=== PATIENT | male | born 1940 | race Caucasian/White ===

== ENCOUNTER 2020-08-08 09:46 | Outpatient (RCR) | payer MEDICARE ==
[~2020-08-08] VITALS: Ht 177.8 cm; Wt 90.9 kg
[2020-08-08] MEDS ORDERED: ROPI2TAB6 PO (13:08)
[2020-08-08] MEDS ORDERED: FINA5TAB6 PO (13:08)
[2020-08-08] MEDS ORDERED: ATOR40TA70 PO (13:08)
[2020-08-08] MEDS ORDERED: LISI2.5T PO (13:08)
[2020-08-08] MEDS ORDERED: LEVO100T7 PO (13:08)
[2020-08-08] MEDS ORDERED: MEMA5TAB43 PO (13:08)
[2020-08-08] MEDS ORDERED: CARV12.53 PO (13:08)
[2020-08-08] MEDS ORDERED: RIVA20TA PO (13:08)
[2020-08-08] MEDS ORDERED: BUME2TAB7 PO (13:08)
== END 2020-08-08 15:17 | disposition home or self-care (01) ==
LOC: EDBD 09:46 → PREOP 09:46
PROVIDERS: ATTEND Urology
DX: Z01.818 Encounter for other preprocedural examination (principal)

== ENCOUNTER → 2020-08-11 | Outpatient (CLI) | payer MEDICARE ==
[~2020-08-11] MED LIST: ATOR40TA70 PO; BUME2TAB7 PO; CARV12.53 PO; FINA5TAB PO; FINA5TAB6 PO; LEVO100T7 PO; LISI2.5T PO; MEMA5TAB43 PO; RIVA20TA PO; ROPI2TAB6 PO; TMSL.4C PO
== END ==
LOC: LAB FS 11:08
PROVIDERS: ATTEND Urology
DX: Z01.812 Encounter for preprocedural laboratory examination (principal); N40.0 Benign prostatic hyperplasia without lower urinary tract symptoms; Z20.828 Contact with and (suspected) exposure to other viral communicable diseases
CPT/HCPCS: 87635

== ENCOUNTER 2020-08-13 06:08 | Inpatient (IN) | payer MEDICARE ==
[~2020-08-13] VITALS: Ht 177 cm; Wt 90.0 kg
[~2020-08-13 06:08] MED LIST changes: -FINA5TAB PO; -TMSL.4C PO
[2020-08-13 06:15] VITALS: BP 149/90
[2020-08-13 06:45] VITALS: BP 149/90
[2020-08-13] MEDS ORDERED: cefTRIAXone FOR IV USE 1,000 MG in WATER (STERILE) FOR INJECTION 10 ML IV ONE (06:45)
[2020-08-13] MEDS ORDERED: fentaNYL INJECTION 100 MCG/2 ML AMP ONE (06:45)
[2020-08-13] MEDS ORDERED: ROCURONIUM 10 MG/ML 5 ML SYRINGE IV ONE (06:49)
[2020-08-13] MEDS ORDERED: LIDOCAINE PF 2% 5 ML (XYLOCAINE) VIAL ONE (06:49)
[2020-08-13] MEDS ORDERED: proPOfol 200 MG/20 ML (DIPRIVAN) VIAL IV ONE (06:49)
[2020-08-13] MEDS ORDERED: SEVOFLURANE (ULTANE) 15 ML INHAL SOLN ONE (06:49)
[2020-08-13] MEDS ORDERED: GLYCOPYRROLATE 0.2 MG/ML (ROBINUL) 2 ML VIAL ONE (06:50)
[2020-08-13] MEDS ORDERED: ONDANSETRON 4 MG/2 ML (SDV) Z0FRAN ONE (06:50)
[2020-08-13] MEDS ORDERED: NEOSTIGMINE 3 MG/3 ML VIAL ONE (06:50)
[2020-08-13] MEDS ORDERED: LACTATED RINGERS 1,000 ML IV PRN (06:52)
--- NOTE | 2020-08-13 07:02 | Progress Note-Pre Operative ---
Pre-Operative Progress Note H&P Reviewed The H&P was reviewed, patient examined and no changes noted. Date Seen by Provider: Aug 13, 2020 Time Seen by Provider: 07:01 Date H&P Reviewed: Aug 13, 2020 Time H&P Reviewed: 07:01 Pre-Operative Diagnosis: BPH WITH URINE RETENTION SERGIO CHRISTINA MD Aug 13, 2020 07:02
[2020-08-13] MEDS ORDERED: GENTAMICIN 40 MG/ML 2 ML INJ SDV ONE (07:08)
[2020-08-13 07:11] LABS: BASOPHILS % (AUTO) 0 % (0-10); EOSINOPHILS # (AUTO) 0.3 10^3/uL (0.0-0.3); EOSINOPHILS % (AUTO) 4 % (0-10); HEMATOCRIT 39 % (40-54); HEMOGLOBIN 13.3 g/dL (13.3-17.7); LYMPHOCYTES # (AUTO) 1.2 10^3/uL (1.0-4.0); LYMPHOCYTES % (AUTO) 17 % (12-44); MEAN CORPUSCULAR HEMOGLOBIN 33 pg (25-34); MEAN CORPUSCULAR HGB CONC 35 g/dL (32-36); MEAN CORPUSCULAR VOLUME 94 fL (80-99); MEAN PLATELET VOLUME 9.7 fL (9.0-12.2); MONOCYTES # (AUTO) 0.8 10^3/uL (0.0-1.0); MONOCYTES % (AUTO) 12 % (0-12); NEUTROPHILS # (AUTO) 4.5 10^3/uL (1.8-7.8); NEUTROPHILS % (AUTO) 66 % (42-75); PLATELET COUNT 285 10^3/uL (130-400); WHITE BLOOD COUNT 6.9 10^3/uL (4.3-11.0)
--- NOTE | 2020-08-13 07:11 | Progress Note-Post Operative ---
Post-Operative Progess Note Surgeon (s)/Repair Service Clerk (s) Surgeon Procedure & Operative Findings Date of Procedure SERGIO CHRISTINA MD Aug 13, 2020 07:11
[2020-08-13] MEDS ORDERED: CATHETER FLUSH 10 ML SYR IV PRN (07:15)
[2020-08-13 07:21] LABS: CHLORIDE 104 MMOL/L (98-107); POTASSIUM 3.6 MMOL/L (3.6-5.0); SODIUM 139 MMOL/L (135-145)
[2020-08-13 07:23] LABS: GLUCOSE 97 MG/DL (70-105)
[2020-08-13 07:24] LABS: CARBON DIOXIDE 24 MMOL/L (21-32)
[2020-08-13 07:27] LABS: CREATININE SERUM 0.99 MG/DL (0.60-1.30); GFR ESTIMATED > 60
[2020-08-13 07:28] LABS: BUN/CREATININE RATIO 29
--- NOTE | 2020-08-13 07:31 | Progress Note - Urology ---
Progress Note-Urology Progress Notes/Assess & Plan Progress/Assessment & Plan PATIENT AND EX VERY POOR HISTORIANS. NOT SURE IF HE STOPPED XARELTO YESTER OR TUESDAY TOLD. DID NOT SEE DR RIVERS (CASH CHECKER) FOR CLEARANCE. PLAN CANCEL SURGERY AND PATIENT TO SEE CASH CHECKER OWN OR ONE OF OURS FOR CARDIAC TESTING AND CLEARANCE FOR SURGERY. TOV AND REINSERT BHARDWAJ IF RETENTION. ALL FULLY EXPLAINED TO THEM REPEATEDLY IN PRESENCE OF ANESTHESIA Final Diagnosis BPH WITH RETENTION SERGIO CHRISTINA MD Aug 13, 2020 07:31
--- NOTE | 2020-08-13 07:39 | Discharge Inst-Urology ---
Discharge Inst-Urology Reconcile Patient Problems Problems Reviewed?: Yes Final Diagnosis BPH WITH RETENTION Patient Instructions/Follow Up Plan/Assessment/Instructions DC Shafer, patient to go to ED if unable to void, to reinsert Shafer Patient to take BOTH FLOMAX (TAMSULOCIN) 0.4 MG TWICE A DAY AND PROSCAR (FINASTERIDE) 5 MG ONCE A DAY Resume Xarelto Patient to contact his aluminum molding machine operator for cardiac testing and clearance for surgery, if unable to do, patient is to contact my office to arrange that with one of our local cardiologists. Once all done, patient is to contact our office to reschedule surgery If questions or concerns contact your physician Or seek help at emergency department. BRYON STRESS ALL ABOVE WITH PATIENT AND EX THANKS SERGIO CHRISTINA MD Aug 13, 2020 07:39
[2020-08-13] MEDS ORDERED: TMSL.4C PO (07:43)
[2020-08-13] MEDS ORDERED: FINA5TAB PO (07:43)
--- NOTE | 2020-08-13 09:31 | NUR ---
0605- PATIENT ARRIVED TO UNIT WITH HIS EX WHO IS NOW HIS NEIGHBOR. 0615- PT WE RE INSTRUCTED TO DRESS IN THE GOWN AND WE WILL GET STARTED 0630- PT'S VITALS WERE COLLECTED AND PT WAS QUESTIONED ABOUT HIS CURRENT MEDICATIONS AND STATED HE IS UNKNOWN ABOUT WHAT MEDICATIONS HE TAKES AND WHEN HE TOOK THEM BUT STATED HE TOOK NO MEDICATIONS TODAY. THE FEMALE IN THE ROOM WHO IS HIS EX GOES ON TO SAY THAT HE DOESN'T HAVE ANY HEART MEDICATIONS. THE TWO WERE CONTRADICTING THEM SELF THROUGH OUT THE CONVERSATION. 0630- DEYANIRA BECERRA WAS IN THE ROOM WELL AND DIDN'T FEEL THE PATIENT WAS ABLE TO PROPERLY MANAGE HIS CURRENT MEDICAL SITUATION AND AND SINCE HE WAS UNSURE OF THE MEDICATIONS OR WEATHER OR NOT HE HAD A CABBAGE THEN THIS WAS UNSAFE. 07- DR CHRISTINA CAME IN THE ROOM ALOT WITH OTHER ANESTHESIA STAFF AND DECIDED THAT THIS PROCEDURE WAS TO RISKY TO TAKE WITH NO CARDIAC MICHEAL AND WITH OUT THE KNOWLEDGE OF WHAT CURRENT MEDICATIONS THE PATIENT TAKES. AT THIS TIME THE SURGERY WAS CANCELED 0720- IT THIS TIME I WAS ABLE TPO REMOVE THE IV AND GIVE DISCHARGE INSTRUCTIONS. THE PT REFUSED TO HAVE HIS CATHETER REMOVED AND DR APPROVED FOR IT TO STAY IN PLACE FOR ONE WEEK BEFORE FOLLOWING UP. PT W2AS STRESSED THE IMPORTANCE OF SEEING HIS CARDIAC DR KAHLIL. PT VOICED HE UNDERSTOOD. 0740- PT WAS ASSISTED OUT TO HIS CAR WITH CATHETER STILL IN PLACE AND NEW RX IN HAND TO TAKE TO THE PHARMACY.
== END 2020-08-13 07:45 | disposition home or self-care (01) | DRG 726 ==
LOC: EDBD → UNDOADMIN 06:08 → 4TH 06:08
PROVIDERS: ADMIT Urology; ATTEND Urology
DX: N40.1 Benign prostatic hyperplasia with lower urinary tract symptoms (principal); R33.9 Retention of urine, unspecified; Z20.828 Contact with and (suspected) exposure to other viral communicable diseases; Z53.8 Procedure and treatment not carried out for other reasons; Z79.02 Long term (current) use of antithrombotics/antiplatelets
CPT/HCPCS: 36415; 80048; 85025; 87081

== ENCOUNTER 2020-11-18 05:59 | Outpatient (RCR) | payer MEDICARE ==
[~2020-11-18] VITALS: Ht 177 cm; Wt 90.0 kg
[~2020-11-18 05:59] MED LIST changes: +FINA5TAB PO; +TMSL.4C PO
== END 2020-11-18 15:01 | disposition home or self-care (01) ==
LOC: PREOP 05:59
PROVIDERS: ATTEND Urology
DX: Z01.818 Encounter for other preprocedural examination (principal)

== ENCOUNTER 2020-11-25 09:00 | Inpatient (IN) | payer MEDICARE ==
[~2020-11-25] VITALS: Ht 177 cm; Wt 90.0 kg
[2020-12-23] VITALS (30 sets, daily range): BP systolic 90–164; BP diastolic 41–103
[2020-12-23] MEDS ORDERED: cefTRIAXone FOR IV USE 1,000 MG in WATER (STERILE) FOR INJECTION 10 ML IV ONE (06:15)
[2020-12-23] MEDS ORDERED: NS IV 500 ML 500 ML IV SCH (06:15)
[2020-12-23] MEDS ORDERED: fentaNYL INJ 100 MCG/2 ML AMP ONE ×2 (06:30→13:30)
[2020-12-23] MEDS ORDERED: ONDANSETRON 4 MG/2 ML (SDV) Z0FRAN ONE (06:36)
[2020-12-23] MEDS ORDERED: proPOfol 200 MG/20 ML (DIPRIVAN) VIAL IV ONE (06:36)
[2020-12-23] MEDS ORDERED: LIDOCAINE PF 2% 5 ML (XYLOCAINE) VIAL ONE (06:36)
[2020-12-23] MEDS ORDERED: SEVOFLURANE (ULTANE) 15 ML INHAL SOLN ONE (06:36)
[2020-12-23] MEDS ORDERED: GENTAMICIN 40 MG/ML 2 ML INJ SDV ONE (06:39)
[2020-12-23] MEDS: LACTATED RINGERS 1,000 ML IV PRN ×2 (06:50→10:23)
[2020-12-23 07:02] LABS: BASOPHILS # (AUTO) 0.1 10^3/uL (0.0-0.1); BASOPHILS % (AUTO) 1 % (0-10); EOSINOPHILS # (AUTO) 0.5 10^3/uL (0.0-0.3); EOSINOPHILS % (AUTO) 7 % (0-10); HEMATOCRIT 37 % (40-54); HEMOGLOBIN 12.7 g/dL (13.3-17.7); LYMPHOCYTES # (AUTO) 1.1 10^3/uL (1.0-4.0); LYMPHOCYTES % (AUTO) 16 % (12-44); MEAN CORPUSCULAR HEMOGLOBIN 32 pg (25-34); MEAN CORPUSCULAR HGB CONC 35 g/dL (32-36); MEAN CORPUSCULAR VOLUME 93 fL (80-99); MEAN PLATELET VOLUME 9.5 fL (9.0-12.2); MONOCYTES # (AUTO) 0.8 10^3/uL (0.0-1.0); MONOCYTES % (AUTO) 12 % (0-12); NEUTROPHILS # (AUTO) 4.3 10^3/uL (1.8-7.8); NEUTROPHILS % (AUTO) 64 % (42-75); PLATELET COUNT 235 10^3/uL (130-400); WHITE BLOOD COUNT 6.8 10^3/uL (4.3-11.0)
--- NOTE | 2020-12-23 07:12 | Progress Note-Pre Operative ---
Pre-Operative Progress Note H&P Reviewed The H&P was reviewed, patient examined and no changes noted. Date Seen by Provider: Dec 23, 2020 Time Seen by Provider: 07:11 Date H&P Reviewed: Dec 23, 2020 Time H&P Reviewed: 07:11 Pre-Operative Diagnosis: BPH WITH PROSTATISM AND URINE RETENTION SERGIO CHRISTINA MD Dec 23, 2020 07:12
--- NOTE | 2020-12-23 07:13 | Progress Note-Post Operative ---
Post-Operative Progess Note Surgeon (s)/Marble Installer Supervisor (s) Surgeon SERGIO CHRISTINA MD Marble Installer Supervisor: GAYLE LEE D.O Pre-Operative Diagnosis BPH WITH PROSTATISM AND URINE RETENTION Post-Operative Diagnosis SAME Procedure & Operative Findings Date of Procedure 12/23/20 Procedure Performed/Findings OPEN PROSTATECTOMY Anesthesia Type GENERAL Estimated Blood Loss Estimated blood loss (mL): 500cc Specimens/Packing Specimens Removed PROSTATE ADENOMA Packing: NONE SERGIO CHRISTINA MD Dec 23, 2020 07:13
[2020-12-23] MEDS ORDERED: MIDAZOLAM 2 MG/2 ML (VERSED) VIAL ONE ×2 (07:28→10:13)
[2020-12-23] MEDS ORDERED: morphine INJ 10 MG/ML 1ML (SYR OR VIAL) IVP ONE (08:00)
[2020-12-23] MEDS ORDERED: MEPERIDINE (DEMEROL) INJ 50 MG/ML IVP ONE (08:00)
[2020-12-23] MEDS ORDERED: fentaNYL INJ 100 MCG/2 ML AMP IVP ONE (08:00)
[2020-12-23] MEDS ORDERED: ONDANSETRON 4 MG/2 ML (SDV) Z0FRAN IVP PRN (08:00)
[2020-12-23] MEDS ORDERED: BUPIVACAINE 0.5% 30 ML (SENSORCAINE) VIAL ONE (08:43)
[2020-12-23] MEDS ORDERED: meTOprolol 5 MG/5 ML (LOPRESSOR) VIAL ONE (08:53)
[2020-12-23] MEDS ORDERED: ISOFLURANE (FORANE) 15 ML/15 MIN INHALATION ONE (09:07)
[2020-12-23] MEDS ORDERED: GLYCOPYRROLATE 0.2 MG/ML (ROBINUL) 2 ML VIAL ONE (09:07)
[2020-12-23] MEDS ORDERED: NEOSTIGMINE 3 MG/3 ML VIAL ONE (09:07)
[2020-12-23] MEDS ORDERED: ROCURONIUM 10 MG/ML 5 ML SYRINGE IV ONE (09:08)
[2020-12-23 10:12] LABS: MEAN PLATELET VOLUME 9.3 fL (9.0-12.2); WHITE BLOOD COUNT 13.2 10^3/uL (4.3-11.0)
[2020-12-23 10:26] LABS: CHLORIDE 104 MMOL/L (98-107); SODIUM 135 MMOL/L (135-145)
[2020-12-23 10:27] LABS: CALCIUM 8.9 MG/DL (8.5-10.1)
[2020-12-23 10:28] LABS: GLUCOSE 121 MG/DL (70-105)
[2020-12-23 10:29] LABS: CARBON DIOXIDE 25 MMOL/L (21-32)
[2020-12-23 10:32] LABS: BUN/CREATININE RATIO 21; CREATININE SERUM 0.89 MG/DL (0.60-1.30); GFR ESTIMATED > 60
[2020-12-23] MEDS ORDERED: morphine INJ 10 MG/ML 1ML (SYR OR VIAL) ONE (10:40)
[2020-12-23] MEDS ORDERED: BELLADONNA ALK/OPIUM (B & O) 30 MG SUPP PR PRN (11:30)
[2020-12-23] MEDS ORDERED: MIDAZOLAM 2 MG/2 ML (VERSED) VIAL IM ONE (11:30)
[2020-12-23] MEDS ORDERED: fentaNYL INJ 100 MCG/2 ML AMP IVP PRN (11:45)
[2020-12-23 13:17] LABS: HEMOGLOBIN 10.7 g/dL (13.3-17.7); MEAN PLATELET VOLUME 9.3 fL (9.0-12.2); WHITE BLOOD COUNT 13.5 10^3/uL (4.3-11.0)
[2020-12-23] MEDS ORDERED: NS IV 500 ML 500 ML ONE (13:29)
[2020-12-23] MEDS: D5 LR IV SOLUTION 1,000 ML IV SCH ×2 (13:38→21:12)
--- NOTE | 2020-12-23 14:50 | OPERATIVE REPORT ---
DATE OF SERVICE: 12/23/2020 PREOPERATIVE DIAGNOSIS: Benign prostatic hyperplasia with prostatism and urinary retention. POSTOPERATIVE DIAGNOSES: Benign prostatic hyperplasia with prostatism and urinary retention. Bladder stone. OPERATION PERFORMED: Suprapubic prostatectomy and extraction of bladder stone. SURGEON: Herminio Christina MD. WORKERS COMPENSATION ADMINISTRATOR: Carlso Mireles DO. ANESTHESIA: General. COMPLICATIONS: None. DESCRIPTION OF PROCEDURE: Under satisfactory general anesthesia, the patient in supine position, abdomen, genitalia and thigh were prepped and draped in the usual sterile fashion after removing the Shafer catheter. A 18-Bhutanese Shafer catheter was then inserted sterilely and the bladder was filled with 400 mL of fluid with antibiotic, and then the catheter was clamped. Incision was made midline from the symphysis pubis to below the umbilicus, carried through the skin, subcutaneous tissue and fascia. The midline was dilated. The recti were retracted laterally. The retropubic space was bluntly dissected and a self-retaining retractor was applied. Incision was made in the anterior wall of the bladder, longitudinal, carried through the layer of the bladder. The fluid was suctioned and the traction was applied to the dome of the bladder over a lap. The ureteric orifices were visualized and kept intact throughout the procedure, trigone as well. The adenoma was identified. A circumcision type of incision using the hook blade around the adenoma was performed, then carried with the scissors to enter the surgical capsule where I inserted my finger and was able to enucleate the whole adenoma with no problem. I removed the Shafer catheter and severed the urethra. The prostatic fossa was packed with a vaginal pack and pressure was applied. I went ahead and packed the trigone to the capsule of the prostate with two interrupted 2-0 chromic suture. Ureteral orifices again were intact, spurting clear urine. I removed the vaginal pack after applying pressure for at least a minute. There was no significant bleeding at all. I reinserted a 22-Bhutanese 3-way 30 mL balloon catheter, inflated the balloon to 60 mL, and put it on traction. The bladder was drained with a 20-Bhutanese 5 mL balloon catheter suprapubically, brought through a separate stab wound in the anterior wall of the bladder and the balloon later on inflated to 10 mL, held snugly against the anterior wall after closing the bladder in two layers, the mucosa with a running 3-0 chromic catgut and the seromuscular layer with interrupted 2-0 chromic. The retropubic space was drained with a Hemovac brought through a separate stab wound at the right side of the incision and secured in position with 2-0 silk suture. Closure was performed in layer, the rectus fascia with interrupted 2-0 Vicryl and the skin with annabel. Needle, sponge, instrument counts correct x2. Estimated blood loss was 500 mL, none of which was replaced. CBI was running from the suprapubic tube to the urethral catheter, which was put on traction, the return of which was clear. Needle, sponge, instrument counts were correct x2. The suprapubic tube was secured in position with a 0 silk suture. Dressing was applied. The patient tolerated the procedure and anesthesia well and was sent to recovery room in stable condition. PLAN: Cardiology consult and the Hospitalist consult postoperatively. Job ID: [id number] DocumentID: [id number] Dictated Date: 12/23/2020 10:03:02 Video System Repairer Date: 12/23/2020 14:49:12 Dictated By: HERMINIO CHRISTINA MD
[2020-12-23] MEDS: fentaNYL INJ 100 MCG/2 ML AMP IVP PRN (22:43)
[2020-12-24] VITALS (24 sets, daily range): BP systolic 128–168; BP diastolic 64–118
[2020-12-24] MEDS: fentaNYL INJ 100 MCG/2 ML AMP IVP PRN ×2 (00:47→21:05)
[2020-12-24 02:29] LABS: BASOPHILS % (AUTO) 0 % (0-10); EOSINOPHILS % (AUTO) 0 % (0-10); HEMATOCRIT 32 % (40-54); HEMOGLOBIN 10.9 g/dL (13.3-17.7); LYMPHOCYTES # (AUTO) 0.9 10^3/uL (1.0-4.0); LYMPHOCYTES % (AUTO) 6 % (12-44); MEAN CORPUSCULAR HEMOGLOBIN 32 pg (25-34); MEAN CORPUSCULAR HGB CONC 34 g/dL (32-36); MEAN CORPUSCULAR VOLUME 93 fL (80-99); MEAN PLATELET VOLUME 10.8 fL (9.0-12.2); MONOCYTES # (AUTO) 1.3 10^3/uL (0.0-1.0); MONOCYTES % (AUTO) 9 % (0-12); NEUTROPHILS # (AUTO) 11.8 10^3/uL (1.8-7.8); NEUTROPHILS % (AUTO) 84 % (42-75); PLATELET COUNT 219 10^3/uL (130-400)
[2020-12-24 02:45] LABS: CHLORIDE 107 MMOL/L (98-107); POTASSIUM 4.2 MMOL/L (3.6-5.0); SODIUM 136 MMOL/L (135-145)
[2020-12-24 02:46] LABS: CALCIUM 9.1 MG/DL (8.5-10.1)
[2020-12-24 02:47] LABS: GLUCOSE 144 MG/DL (70-105)
[2020-12-24 02:48] LABS: CARBON DIOXIDE 20 MMOL/L (21-32)
[2020-12-24 02:50] LABS: CREATININE SERUM 0.86 MG/DL (0.60-1.30); GFR ESTIMATED > 60; PHOSPHORUS 2.5 MG/DL (2.3-4.7)
[2020-12-24 02:51] LABS: BUN/CREATININE RATIO 22
[2020-12-24 02:53] LABS: MAGNESIUM 1.7 MG/DL (1.6-2.4)
[2020-12-24] MEDS: POTASSIUM CL 10MEQ/50ML IVPB 50 ML IV SCH (03:02)
[2020-12-24] MEDS: KCL 20 MEQ TAB (K-DUR) PO SCH (03:03)
[2020-12-24] MEDS: MAGNESIUM 1 GM/100 ML IVPB 100 ML IV SCH (03:03)
[2020-12-24 03:05] LABS: BAND NEUTROPHILS 2 %; EOSINOPHILS % (MANUAL) 0 %; LYMPHOCYTES % (MANUAL) 8 %; MONOCYTES % (MANUAL) 5 %; NEUTROPHILS % (MANUAL) 85 %
[2020-12-24 03:06] LABS: BASOPHILS % (MANUAL) 0 %; ELLIPT/OVALOCYTES SLIGHT; POIKILOCYTOSIS SLIGHT
[2020-12-24] MEDS: D5 LR IV SOLUTION 1,000 ML IV SCH ×3 (06:47→22:32)
--- NOTE | 2020-12-24 06:51 | Anesthesia-General Post-Op ---
General Patient Condition Mental Status/LOC: Same as Preop Cardiovascular: Satisfactory Nausea/Vomiting: Absent Respiratory: Satisfactory Pain: Controlled Complications: Absent Post Op Complications Complications None Follow Up Care/Instructions Patient Instructions None needed. Anesthesia/Patient Condition Patient Condition Patient is doing well, no complaints, stable vital signs, no apparent adverse anesthesia problems. No complications reported per nursing. JUVENCIO OWEN CRNA Dec 24, 2020 06:51
[2020-12-24] MEDS: meTOprolol 5 MG/5 ML (LOPRESSOR) VIAL IV SCH ×7 (08:16→23:56)
--- NOTE | 2020-12-24 10:10 | Progress Note - Urology ---
Progress Note-Urology Progress Notes/Assess & Plan Progress/Assessment & Plan DOING, LOOKING AND FEELING GOOD. NO FLATUS. ABDOMEN SOFT. LABS STABLE. URINE CLEAR ON VERY SLOW DRIP. PLAN KEEP IN ICU TODAY WITH SAME PLAN Final Diagnosis BPH WITH RETENTION SERGIO CHRISTINA MD Dec 24, 2020 10:10
--- NOTE | 2020-12-24 10:14 | Consultation-Cardiology ---
HPI-Cardiology Cardiology Consultation Date of Consultation 12/24/20 Date of Admission Time Seen by Provider: 08:00 Indication: Atrial fibrillation HPI 80 years old gentleman with history of coronary artery disease, CABG, questionable history of atrial fibrillation. Underwent prostatectomy, perioperatively was noted to have atrial fibrillation with frequent premature ventricular contractions, having episodes of tachycardia. Patient is poor historian, is unable to provide full history, reported that he is following with a operator electronic warfare in [place] that he does not recall his name but recalled that he had a stress test done recently and he was told it was normal. He reports chest pain with exertion reporting tightness in his chest upon walking. No palpitat ion. No syncope or near syncopal episodes. Home Medications & Allergies Allergies: Coded Allergies: Sulfa (Sulfonamide Antibiotics) (Verified Allergy, Unknown, 08/08/20) Home Medication List Reviewed: Yes NLG-[id number]-Ffabjr Hx Patient Social History Employed/Student: retired Recent Hopitalizations: No Past Medical History Discussed below Family Medical History Family Medical Hx Noncontributory Review of Systems-General Review of Systems Constitutional: see HPI, weakness EENTM: see HPI, no symptoms reported Respiratory: see HPI; No cough, No dyspnea on exertion, No hemoptysis, No orthopnea, No phlegm, No short of breath, No stridor, No wheezing, No other Cardiovascular: see HPI, chest pain; No edema, No Hx of Intervention, No palpitations, No syncope, No vascular heart diseas, No other Gastrointestinal: no symptoms reported, see HPI Genitourinary: no symptoms reported, see HPI Musculoskeletal: no symptoms reported, see HPI Skin: no symptoms reported, see HPI Psychiatric/Neurological: No Symptoms Reported, See HPI Reviewed Test Results Reviewed Test Results Lab Laboratory Tests Test 12/23/20 13:10 12/24/20 01:50 Range/Units White Blood Count 13.5 H 14.0 H 4.3-11.0 10^3/uL Red Blood Count 3.33 L 3.42 L 4.30-5.52 10^6/uL Hemoglobin 10.7 L 10.9 L 13.3-17.7 g/dL Hematocrit 31 L 32 L 40-54 % Mean Corpuscular Volume 94 93 80-99 fL Mean Corpuscular Hemoglobin 32 32 25-34 pg Mean Corpuscular Hemoglobin Concent 34 34 32-36 g/dL Red Cell Distribution Width 13.1 13.2 10.0-14.5 % Platelet Count 229 219 130-400 10^3/uL Mean Platelet Volume 9.3 10.8 9.0-12.2 fL Immature Granulocyte % (Auto) 0 % Neutrophils (%) (Auto) 84 H 42-75 % Lymphocytes (%) (Auto) 6 L 12-44 % Monocytes (%) (Auto) 9 0-12 % Eosinophils (%) (Auto) 0 0-10 % Basophils (%) (Auto) 0 0-10 % Neutrophils # (Auto) 11.8 H 1.8-7.8 10^3/uL Lymphocytes # (Auto) 0.9 L 1.0-4.0 10^3/uL Monocytes # (Auto) 1.3 H 0.0-1.0 10^3/uL Eosinophils # (Auto) 0.0 0.0-0.3 10^3/uL Basophils # (Auto) 0.0 0.0-0.1 10^3/uL Immature Granulocyte # (Auto) 0.1 0.0-0.1 10^3/uL Neutrophils % (Manual) 85 % Lymphocytes % (Manual) 8 % Monocytes % (Manual) 5 % Eosinophils % (Manual) 0 % Basophils % (Manual) 0 % Band Neutrophils 2 % Poikilocytosis SLIGHT Elliptocytes SLIGHT Sodium Level 136 135-145 MMOL/L Potassium Level 4.2 3.6-5.0 MMOL/L Chloride Level 107 98-107 MMOL/L Carbon Dioxide Level 20 L 21-32 MMOL/L Anion Gap 9 5-14 MMOL/L Blood Urea Nitrogen 19 H 7-18 MG/DL Creatinine 0.86 0.60-1.30 MG/DL Estimat Glomerular Filtration Rate > 60 BUN/Creatinine Ratio 22 Glucose Level 144 H 70-105 MG/DL Calcium Level 9.1 8.5-10.1 MG/DL Phosphorus Level 2.5 2.3-4.7 MG/DL Magnesium Level 1.7 1.6-2.4 MG/DL Physical Exam Physical Exam Vital Signs Vital Signs - First Documented 12/23/20 06:15 Temp 36.5 Pulse 100 Resp 20 B/P (MAP) 164/100 (121) Pulse Ox 96 O2 Delivery Room Air Capillary Refill : Height, Weight, BMI Height: '" Weight: lbs. oz. kg; 28.72 BMI Method: General Appearance: No Apparent Distress, WD/WN Eyes: Bilateral Eye Normal Inspection, Bilateral Eye PERRL, Bilateral Eye EOMI HEENT: PERRL/EOMI, TMs Normal, Normal ENT Inspection, Pharynx Normal, Moist Mucous Membranes Neck: Full Range of Motion, Normal Inspection, Non Tender, Supple, Carotid Bruit Respiratory: Chest Non Tender, Normal Breath Sounds, No Accessory Muscle Use, No Respiratory Distress Cardiovascular: No Edema, No Gallop, No JVD, Normal Peripheral Pulses, Systolic Murmur, Irregularly Irregular Gastrointestinal: Normal Bowel Sounds, No Organomegaly, No Pulsatile Mass, Non Tender, Soft Back: Normal Inspection, No CVA Tenderness, No Vertebral Tenderness Extremity: Normal Capillary Refill, Normal Inspection, Normal Range of Motion, Non Tender, No Calf Tenderness, No Pedal Edema Neurologic/Psychiatric: Alert, Oriented x3, No Motor/Sensory Deficits, Normal Mood/Affect Skin: Normal Color, Warm/Dry Lymphatic: No Adenopathy A/P-Cardiology Admission Diagnosis Coronary artery disease Chest pain Atrial fibrillation Hypertension Assessment/Plan Coronary artery disease, history of CABG in the remote past, reporting that he had a cardiac stress test done in [place] and he was told that it was normal. I do not have the report. Currently not having any active chest pain. Continue to monitor EKG Atrial fibrillation with rapid ventricular response, starting IV Lopressor, restart home medication and monitor. Frequent premature ventricular contractions, ventricular bigeminy, starting on IV Lopressor and restart beta-blockers, patient has been on Coreg as an outpatient [id number] score of 4, yearly risk of stroke without oral anticoagulation is 4%, patient has been maintained on Xarelto as an outpatient, need to be restarted as soon as possible Hypertension, restart home medication monitor blood pressure Hyperlipidemia, monitor lipids Dementia, patient has significant memory loss, unable to provide full history. Status post prostatectomy, still having hematuria, recommend restarting oral anticoagulation as soon as possible. HEATHER ALMAZAN MD Dec 24, 2020 10:14
--- NOTE | 2020-12-24 12:58 | Consultation - Hospitalist ---
HPI History of Present Illness: HPI/Chief Complaint Karlos Rinaldi is an 80-year-old male with past medical history of hypertension, hyperlipidemia, coronary artery disease status post CABG, atrial fibrillation, hypothyroidism, BPH, who presented for prostatectomy. Dr. Breaux performed the procedure yesterday and afterward he developed significant hemat uria. Upon my examination, the patient is confused. He denies any current complaints or concerns. Source: patient Exam Limitations: no limitations Date Seen 12/24/20 Attending Physician Herminio Breaux MD PCP No,Local Physician Referring Physician Date of Admission Dec 23, 2020 at 05:57 Home Medications & Allergies Home Medications Reviewed patient Home Medication Reconciliation performed by pharmacy medication reconciliations hydrometeorological technician and/or nursing. Patients Allergies have been reviewed. Allergies Allergies Coded Allergies Sulfa (Sulfonamide Antibiotics) (Verified Allergy, Unknown, 08/08/20) Past Pxyzojl-Wsbihj-Ixzdvt Hx Past Med/Social Hx: Reviewed Nursing Past Med/Soc Hx Patient Social History Employed/Student: retired Recent Foreign Travel: No Contact w/other who traveled: No Recent Hopitalizations: No Seasonal Allergies Seasonal Allergies: No Past Medical History Surgeries: CABG Currently Using CPAP: No Currently Using BIPAP: No Cardiac: Coronary Artery Disease, Hypertension Genitourinary: Benign Prostatic Hyperpl, Prostate Problems Musculoskeletal: Arthritis Endocrine: Hypothyroidsim History of Blood Disorders: No Review of Systems Constitutional: no symptoms reported EENTM: no symptoms reported Respiratory: no symptoms reported Cardiovascular: no symptoms reported Gastrointestinal: no symptoms reported Genitourinary: hematuria Musculoskeletal: no symptoms reported Skin: no symptoms reported Psychiatric/Neurological: No Symptoms Reported Physical Exam Physical Exam Vital Signs Vital Signs - First Documented 12/23/20 06:15 Temp 36.5 Pulse 100 Resp 20 B/P (MAP) 164/100 (121) Pulse Ox 96 O2 Delivery Room Air Capillary Refill : Height, Weight, BMI Height: '" Weight: lbs. oz. kg; 28.72 BMI Method: General Appearance: No Apparent Distress, WD/WN Eyes: Bilateral Eye Normal Inspection, Bilateral Eye PERRL, Bilateral Eye EOMI HEENT: PERRL/EOMI, Pharynx Normal, Moist Mucous Membranes Neck: Normal Inspection, Supple, Carotid Bruit Respiratory: Lungs Clear, Normal Breath Sounds, No Respiratory Distress Cardiovascular: No Edema, Systolic Murmur, Irregularly Irregular Gastrointestinal: Normal Bowel Sounds, Non Tender, Soft Extremity: Normal Inspection, Non Tender, No Pedal Edema Neurologic/Psychiatric: Alert, Oriented x3, No Motor/Sensory Deficits, Normal Mood/Affect Skin: Normal Color, Warm/Dry Lymphatic: No Adenopathy Results Results/Procedures Labs Laboratory Tests 12/23/20 06:45 12/23/20 10:01 12/23/20 13:10 12/24/20 01:50 Patient resulted labs reviewed. Imaging: Reviewed Imaging Report Assessment/Plan Assessment and Plan Assess & Plan/Chief Complaint BPH s/p prostatectomy Hematuria Post-operative anemia Hgb 10.9 this morning, decreased from baseline s/p [address] Breaux primary Receiving CBI Continue to monitor AFib Anticoagulation held IV Metoprolol Anxiety Agitation Dementia Delirium Ativan and Haldol as needed for anxiety and agitation HTN HLD Hypothyroidism CAD Home meds held Diagnosis/Problems Diagnosis/Problems (1) BPH (benign prostatic hyperplasia) Status: Acute (2) S/P prostatectomy Status: Acute (3) Hematuria Status: Acute (4) Postoperative anemia Status: Acute (5) Afib Status: Chronic (6) HTN (hypertension) Status: Chronic (7) HLD (hyperlipidemia) Status: Chronic (8) Hypothyroidism Status: Chronic (9) CAD (coronary artery disease) Status: Chronic (10) History of coronary artery bypass graft Status: Chronic (11) Anxiety Status: Acute (12) Agitation Status: Acute KYLER [facility] MD Dec 24, 2020 12:58
[2020-12-24] MEDS: ALPRAZolam 0.25 MG (XANAX) TAB PO PRN (13:48)
[2020-12-24] MEDS ORDERED: rOPINIRole 1 MG (REQUIP) TABLET PO NR (16:00)
[2020-12-24] MEDS: HALOPERIDOL 5 MG/ML (HALDOL) VIAL IM PRN ×2 (19:39→23:56)
[2020-12-24] MEDS: rOPINIRole 1 MG (REQUIP) TABLET PO SCH (19:39)
[2020-12-24] MEDS: CARVEDILOL 12.5 MG (COREG) TABLET PO SCH (19:40)
[2020-12-25] VITALS (15 sets, daily range): BP systolic 112–161; BP diastolic 53–92
[2020-12-25 02:39] LABS: BASOPHILS % (AUTO) 0 % (0-10); EOSINOPHILS # (AUTO) 0.1 10^3/uL (0.0-0.3); EOSINOPHILS % (AUTO) 1 % (0-10); HEMATOCRIT 30 % (40-54); HEMOGLOBIN 10.6 g/dL (13.3-17.7); LYMPHOCYTES # (AUTO) 1.3 10^3/uL (1.0-4.0); LYMPHOCYTES % (AUTO) 14 % (12-44); MEAN CORPUSCULAR HEMOGLOBIN 32 pg (25-34); MEAN CORPUSCULAR HGB CONC 35 g/dL (32-36); MEAN CORPUSCULAR VOLUME 91 fL (80-99); MEAN PLATELET VOLUME 10.3 fL (9.0-12.2); MONOCYTES # (AUTO) 1.2 10^3/uL (0.0-1.0); MONOCYTES % (AUTO) 13 % (0-12); NEUTROPHILS # (AUTO) 6.5 10^3/uL (1.8-7.8); NEUTROPHILS % (AUTO) 71 % (42-75); PLATELET COUNT 213 10^3/uL (130-400); WHITE BLOOD COUNT 9.2 10^3/uL (4.3-11.0)
[2020-12-25] MEDS: meTOprolol 5 MG/5 ML (LOPRESSOR) VIAL IV SCH ×4 (03:02→12:26)
[2020-12-25 03:31] LABS: BUN/CREATININE RATIO 15; CALCIUM 9.1 MG/DL (8.5-10.1); CARBON DIOXIDE 22 MMOL/L (21-32); CHLORIDE 108 MMOL/L (98-107); CREATININE SERUM 0.81 MG/DL (0.60-1.30); GFR ESTIMATED > 60; GLUCOSE 104 MG/DL (70-105); MAGNESIUM 1.4 MG/DL (1.6-2.4); PHOSPHORUS 1.7 MG/DL (2.3-4.7); POTASSIUM 3.8 MMOL/L (3.6-5.0); SODIUM 140 MMOL/L (135-145)
[2020-12-25] MEDS: KCL 20 MEQ TAB (K-DUR) PO SCH (03:33)
[2020-12-25] MEDS: POTASSIUM CL 10MEQ/50ML IVPB 50 ML IV SCH (03:33)
[2020-12-25] MEDS: MAGNESIUM 1 GM/100 ML IVPB 100 ML IV SCH ×2 (03:34→03:57)
[2020-12-25] MEDS: D5 LR IV SOLUTION 1,000 ML IV SCH ×3 (04:30→23:10)
[2020-12-25] MEDS: fentaNYL INJ 100 MCG/2 ML AMP IVP PRN (04:31)
[2020-12-25] MEDS ORDERED: POT PHOS/NA PHOS (K-PHOS NEUTRAL) PO ONE (07:45)
--- NOTE | 2020-12-25 09:01 | Cardiology Progress Note ---
Subjective Date Seen by Provider: Dec 25, 2020 Time Seen by Provider: 08:58 Subjective/Events-last exam Patient is sleeping. Did not provide history Review of Systems General: Other (Unable to provide review of system) Objective-Cardiology Exam Last Set of Vital Signs Vital Signs 12/25/20 12/25/20 12/25/20 06:00 08:17 08:21 Temp 37.0 Pulse 73 Resp 21 B/P (MAP) 128/89 (102) Pulse Ox 99 O2 Delivery Nasal Cannula O2 Flow Rate 2.00 Capillary Refill : I&O Intake and Output 12/25/20 00:00 Intake Total 8750 ml Output Total 79877 ml Balance -3225 ml Other 8750 ml Output Urine Total 3600 ml Drainage Total 175 ml Other 8200 ml General: No Acute Distress, Other HEENT: Atraumatic Neck: Supple Lungs: Clear to Auscultation, Normal Air Movement Heart: Normal S1, Normal S2, Other (Irregular rate) Abdomen: Normal Bowel Sounds Extremities: No Clubbing, No Cyanosis Skin: No Rashes Results Lab Laboratory Tests 12/25/20 02:22 A/P-Cardiology Admission Diagnosis Coronary artery disease Chest pain Atrial fibrillation Hypertension Assessment/Plan Coronary artery disease, history of CABG in the remote past, reporting that he had a cardiac stress test done in [place] and he was told that it was normal. I do not have the report. Currently not having any active chest pain. Continue to monitor EKG Atrial fibrillation with rapid ventricular response, started on IV Lopressor, restart Coreg and monitor tolerance and response Frequent premature ventricular contractions, ventricular bigeminy, still having occasional premature ventricular contractions after initiating beta-blockers [id number] score of 4, yearly risk of stroke without oral anticoagulation is 4%, patient has been maintained on Xarelto as an outpatient, need to be rest arted as soon as possible Hypertension, restart home medication monitor blood pressure Hyperlipidemia, monitor lipids Dementia, patient has significant memory loss, unable to provide full history. Status post prostatectomy, still having hematuria, recommend restarting oral anticoagulation as soon as possible. HEATHER ALMAZAN MD Dec 25, 2020 09:01
[2020-12-25] MEDS: rOPINIRole 1 MG (REQUIP) TABLET PO SCH ×2 (09:46→20:21)
[2020-12-25] MEDS: CARVEDILOL 12.5 MG (COREG) TABLET PO SCH ×2 (09:46→18:20)
--- NOTE | 2020-12-25 09:46 | Progress Note - Urology ---
Progress Note-Urology Progress Notes/Assess & Plan Progress/Assessment & Plan CONTINUES WELL. NO COMPLAINTS. HAS BOWEL SOUNDS AND PASSING FLATUS. HEMOVAC ONLY 50CC. URINE CLEAR. TOLERATES LIQUIDS WELL. ABDOMEN SOFT. APPRECIATE JOSE [facility] AND NORAH'S HELP. LABS STABLE. PLAN PER ORDERS Final Diagnosis BPH WITH RETENTION SERGIO CHRISTINA MD Dec 25, 2020 09:46
--- NOTE | 2020-12-25 11:36 | Physical Therapy Evaluation ---
PT Evaluation-General Medical Diagnosis Admission Date Dec 23, 2020 at 05:57 Medical Diagnosis: BPH retention Onset Date: Dec 23, 2020 Therapy Diagnosis Therapy Diagnosis: debility/weakness Precautions Precautions/Isolations: Fall Prevention, Standard Precautions Weight Bear Status Right Lower Extremity: Right Weight Bearing/Tolerated Left Lower Extremity: Left Weight Bearing/Tolerated Referral Physician: Marta Reason for Referral: Evaluation/Treatment Medical History Pertinent Medical History: Atrial Fib, CABG, CAD, COPD, Dementia, HTN, Hypothroidism Current History admit secondary to diagnosis Reviewed History: Yes Social History Home: Single Level Current Living Status: Alone Prior Prior Level of Function SCALE: Activities may be completed with or without assistive devices. 7-Rzjestxely-mhjviwt completes the activity by him/herself with no assistance from a helper. 5-Set-up or Clean-up Assistance-helper sets up or cleans up; patient completes activity. [place] assists only prior to or following the activity. 4-Supervision or Touching Assistance-helper provides verbal cues and/or touching/steadying and/or contact guard assistance as patient completes activity. Assistance may be provided throughout the activity or intermittently. 3-Partial/Moderate Assistance-helper does LESS THAN HALF the effort. [place] lifts, holds or supports trunk or limbs, but provides less than half the effort. 2-Substantial/Maximal Assistance-helper does MORE THAN HALF the effort. [place] lifts or holds trunk or limbs and provides more than half the effort. 8-Ewsyzpllw-wedytr does ALL the effort. Patient does none of the effort to complete the activity. Or, the assistance of 2 or more helpers is required for the patient to complete the activity. If activity was not attempted, code reason: 7-Patient Refused. 9-Not Applicable-not attempted and the patient did not perform the activity before the current illness, exacerbation or injury. 10-Not Attempted due to Environmental Limitations-(lack of equipment, weather restraints, etc.). 88-Not Attempted due to Medical Conditions or Safety Concerns. Bed Mobility: 6 Transfers (B,C,W/C): 6 Gait: 6 Stairs: 6 Indoor Mobility (Ambulation): Independent Stairs: Independent Prior Devices Use: None PT Evaluation-Current Subjective Patient agrees to PT. Pain Numeric Pain Scale: 5-Moderate Pain Location: Lower Pain Description: Acute Objective Patient Orientation: Normal For Age Attachments: Oxygen, Shafer Catheter, IV ROM/Strength ROM Lower Extremities bilateral LE WFL Strength Lower Extremities 4-/5 grossly bilateral LE Integumentary/Posture Integumentary refer to nursing notes Bowel Incontinence: No Bladder Incontinence: Shafer Cath Posture WFL Neuromuscular (Tone, Coordination, Reflexes) grossly intact with all Sensory Vision: Wears Glasses Hearing: Functional Transfers Roll Left to Right (QC): 5 Sit to Lying (QC): 5 Lying to Sitting/Side of Bed(Q: 5 Sit to Stand (QC): 4 Chair/Jau-ql-Aqdhp Xfer(QC): 4 Gait Does the Patient Walk?: Yes Mode of Locomotion: Walk Anticipated Mode of Locomotion: Walk Walk 10 feet (QC): 4 Gait Assistive Device: FWW Balance Sitting Static: Normal Sitting Dynamic: Normal Standing Static: Normal Standing Dynamic: Normal Assessment/Needs 80 y.o. male, will benefit from skilled PT to address functional strength and mobility to improve current LOF to safely return to home at maximum LOF. Rehab Potential: Fair PT Residential Goals Assembler Fluorescent Lights Goals PT Assembler Fluorescent Lights Goals Time Frame: Jan 03, 2021 Roll Left & Right (QC): 6 Sit to Lying (QC): 6 Lying-Sitting on Side/Bed(QC): 6 Sit to Stand (QC): 6 Chair/Ftf-co-Brkrq Xfer(QC): 6 Toilet Transfer (QC): 6 Does the Patient Walk: Yes Walk 10 feet (QC): 6 Walk 50ft with 2 Turns (QC): 6 Walk 150 ft (QC): 6 PT Plan Problem List Problem List: Activity Tolerance Treatment/Plan Treatment Plan: Continue Plan of Care Treatment Plan: Bed Mobility, Education, Functional Activity Skip, Functional Strength, Gait, Safety, Therapeutic Exercise, Transfers Treatment Duration: Jan 03, 2021 Frequency: 6 times per week Estimated Hrs Per Day: .5 hour per day Patient and/or Family Agrees t: Yes Time/GCodes Time In: 1050 Time Out: 1100 Total Billed Treatment Time: 10 Total Billed Treatment 1 visit EVModC 10 min CARMELO FERREIRA PT Dec 25, 2020 11:36
--- NOTE | 2020-12-25 11:41 | Progress Note - Hospitalist ---
Subjective HPI/CC On Admission Date Seen by Provider: Dec 25, 2020 Time Seen by Provider: 09:10 Karlos Rinaldi is an 80-year-old male with past medical history of hypertension, hyperlipidemia, coronary artery disease status post CABG, atrial fibrillation, hypothyroidism, BPH, who presented for prostatectomy. Dr. Breaux performed the procedure yesterday and afterward he developed significant hematuria. Upon my examination, the patient is confused. He denies any current complaints or concerns. Subjective/Events-last exam He has no complaints this morning. He denies any pain. He is not having any trouble breathing. Objective Exam Vital Signs Vital Signs Date Time Temp Pulse Resp B/P (MAP) Pulse Ox O2 Delivery O2 Flow Rate FiO2 12/25/20 10:45 Nasal Cannula 1.00 12/25/20 10:00 96 30 112/53 (72) 97 12/25/20 08:21 37.0 Capillary Refill : General Appearance: No Apparent Distress, WD/WN Respiratory: Lungs Clear, Normal Breath Sounds, No Respiratory Distress Cardiovascular: Regular Rate, Rhythm, No Edema, No Murmur Gastrointestinal: Normal Bowel Sounds, Non Tender, Soft Extremity: Normal Inspection, Non Tender, No Pedal Edema Neurologic/Psychiatric: Alert, No Motor/Sensory Deficits, Normal Mood/Affect Skin: Normal Color, Warm/Dry Results/Procedures Lab Laboratory Tests 12/25/20 02:22 Patient resulted labs reviewed. Imaging: Reviewed Imaging Report Assessment/Plan Assessment and Plan Assess & Plan/Chief Complaint BPH s/p prostatectomy Hematuria Post-operative anemia Hgb 10.6 this morning, stable s/p [address] Breaux primary Receiving CBI, urine clearing Continue to monitor AFib Anticoagulation held IV Metoprolol Anxiety Agitation Dementia Delirium Ativan and Haldol as needed for anxiety and agitation HTN HLD Hypothyroidism CAD Home meds held Diagnosis/Problems Diagnosis/Problems (1) BPH (benign prostatic hyperplasia) Status: Acute (2) S/P prostatectomy Status: Acute (3) Hematuria Status: Acute (4) Postoperative anemia Status: Acute (5) Afib Status: Chronic (6) HTN (hypertension) Status: Chronic (7) HLD (hyperlipidemia) Status: Chronic (8) Hypothyroidism Status: Chronic (9) CAD (coronary artery disease) Status: Chronic (10) History of coronary artery bypass graft Status: Chronic (11) Anxiety Status: Acute (12) Agitation Status: Acute KYLER SIU MD Dec 25, 2020 11:41
[2020-12-25] MEDS: lisINopril 5 MG (PRINIVIL) TABLET PO SCH (20:21)
[2020-12-25] MEDS: ALPRAZolam 0.25 MG (XANAX) TAB PO PRN (23:12)
[2020-12-26] VITALS (9 sets, daily range): BP systolic 80–152; BP diastolic 36–93
[2020-12-26 05:55] LABS: BASOPHILS # (AUTO) 0.1 10^3/uL (0.0-0.1); BASOPHILS % (AUTO) 1 % (0-10); EOSINOPHILS # (AUTO) 0.4 10^3/uL (0.0-0.3); EOSINOPHILS % (AUTO) 4 % (0-10); HEMATOCRIT 30 % (40-54); HEMOGLOBIN 10.1 g/dL (13.3-17.7); LYMPHOCYTES # (AUTO) 1.1 10^3/uL (1.0-4.0); LYMPHOCYTES % (AUTO) 13 % (12-44); MEAN CORPUSCULAR HEMOGLOBIN 32 pg (25-34); MEAN CORPUSCULAR HGB CONC 34 g/dL (32-36); MEAN CORPUSCULAR VOLUME 93 fL (80-99); MEAN PLATELET VOLUME 10.3 fL (9.0-12.2); MONOCYTES % (AUTO) 12 % (0-12); NEUTROPHILS # (AUTO) 6.3 10^3/uL (1.8-7.8); NEUTROPHILS % (AUTO) 71 % (42-75); PLATELET COUNT 208 10^3/uL (130-400); WHITE BLOOD COUNT 8.9 10^3/uL (4.3-11.0)
[2020-12-26 06:05] LABS: CHLORIDE 106 MMOL/L (98-107); POTASSIUM 3.6 MMOL/L (3.6-5.0); SODIUM 137 MMOL/L (135-145)
[2020-12-26 06:06] LABS: CALCIUM 8.8 MG/DL (8.5-10.1); GLUCOSE 99 MG/DL (70-105)
[2020-12-26 06:08] LABS: CARBON DIOXIDE 22 MMOL/L (21-32)
[2020-12-26 06:10] LABS: CREATININE SERUM 0.77 MG/DL (0.60-1.30); GFR ESTIMATED > 60
[2020-12-26 06:11] LABS: BUN/CREATININE RATIO 18
[2020-12-26 08:21] LABS: PHOSPHORUS 2.2 MG/DL (2.3-4.7)
[2020-12-26] MEDS: CARVEDILOL 12.5 MG (COREG) TABLET PO SCH ×2 (08:59→17:24)
[2020-12-26] MEDS: rOPINIRole 1 MG (REQUIP) TABLET PO SCH ×2 (08:59→20:54)
--- NOTE | 2020-12-26 10:19 | Progress Note - Urology ---
Progress Note-Urology Progress Notes/Assess & Plan Progress/Assessment & Plan DOING WELL. TOLERATES REGULAR DIET WELL. FLATUS BUT NO BM YET. URINE CLEAR. GOOD U.O. DECREASE HEMOVAC AMOUNT Final Diagnosis BPH WITH RETENTION SERGIO CHRISTINA MD Dec 26, 2020 10:19
--- NOTE | 2020-12-26 10:25 | Physical Therapy Daily Note ---
PT Daily Note-Current Subjective Patient agrees to PT. Mental Status Patient Orientation: Normal For Age Attachments: Shafer Catheter, IV Transfers SCALE: Activities may be completed with or without assistive devices. 6-Kimbyubsiw-nljvknl completes the activity by him/herself with no assistance from a helper. 5-Set-up or Clean-up Assistance-helper sets up or cleans up; patient completes activity. [place] assists only prior to or following the activity. 4-Supervision or Touching Assistance-helper provides verbal cues and/or touching/steadying and/or contact guard assistance as patient completes activity. Assistance may be provided throughout the activity or intermittently. 3-Partial/Moderate Assistance-helper does LESS THAN HALF the effort. [place] lifts, holds or supports trunk or limbs, but provides less than half the effort. 2-Substantial/Maximal Assistance-helper does MORE THAN HALF the effort. [place] lifts or holds trunk or limbs and provides more than half the effort. 4-Yvblejceu-qugnqf does ALL the effort. Patient does none of the effort to complete the activity. Or, the assistance of 2 or more helpers is required for the patient to complete the activity. If activity was not attempted, code reason: 7-Patient Refused. 9-Not Applicable-not attempted and the patient did not perform the activity before the current illness, exacerbation or injury. 10-Not Attempted due to Environmental Limitations-(lack of equipment, weather restraints, etc.). 88-Not Attempted due to Medical Conditions or Safety Concerns. Lying to Sitting/Side of Bed(Q: 5 Sit to Stand (QC): 4 Chair/Jgf-er-Eqdph Xfer(QC): 4 Weight Bearing Right Lower Extremity: Right Weight Bearing/Tolerated Left Lower Extremity: Left Weight Bearing/Tolerated Gait Training Does the Patient Walk?: Yes Distance: 200' Walk 10 feet (QC): 4 Walk 50 ft with 2 Turns(QC): 4 Walk 150 ft (QC): 4 Gait Assistive Device: FWW slow and steady Assessment Patient fatigues with minimal activity. Up in recliner. Increase activity as tolerated by patient. PT Shelter Goals Wastewater Superintendent Goals PT Wastewater Superintendent Goals Time Frame: Jan 03, 2021 Roll Left & Right (QC): 6 Sit to Lying (QC): 6 Lying-Sitting on Side/Bed(QC): 6 Sit to Stand (QC): 6 Chair/Dpq-yh-Pwlnw Xfer(QC): 6 Toilet Transfer (QC): 6 Does the Patient Walk: Yes Walk 10 feet (QC): 6 Walk 50ft with 2 Turns (QC): 6 Walk 150 ft (QC): 6 PT Plan Treatment/Plan Treatment Plan: Continue Plan of Care Treatment Plan: Bed Mobility, Education, Functional Activity Skip, Functional Strength, Gait, Safety, Therapeutic Exercise, Transfers Treatment Duration: Jan 03, 2021 Frequency: 6 times per week Estimated Hrs Per Day: .5 hour per day Patient and/or Family Agrees t: Yes Time/GCodes Time In: 1000 Time Out: 1011 Total Billed Treatment Time: 11 Total Billed Treatment 1 visit GT 11 min CARMELO FERREIRA PT Dec 26, 2020 10:25
--- NOTE | 2020-12-26 11:27 | Progress Note - Hospitalist ---
Subjective HPI/CC On Admission Date Seen by Provider: Dec 26, 2020 Time Seen by Provider: 10:20 Karlos Rinaldi is an 80-year-old male with past medical history of hypertension, hyperlipidemia, coronary artery disease status post CABG, atrial fibrillation, hypothyroidism, BPH, who presented for prostatectomy. Dr. Breaux performed the procedure yesterday and afterward he developed significant hematuria. Upon my examination, the patient is confused. He denies any current complaints or concerns. Subjective/Events-last exam He is feeling well. He denies any pain. He denies any lightheadedness or dizziness. He does report some occasional abdominal discomfort. Objective Exam Vital Signs Vital Signs Date Time Temp Pulse Resp B/P (MAP) Pulse Ox O2 Delivery O2 Flow Rate FiO2 12/26/20 07:40 36.2 76 16 111/56 (74) 96 Room Air 12/25/20 10:45 1.00 Capillary Refill : General Appearance: No Apparent Distress, WD/WN Respiratory: Lungs Clear, Normal Breath Sounds, No Respiratory Distress Cardiovascular: Regular Rate, Rhythm, No Edema, No Murmur Gastrointestinal: Normal Bowel Sounds, Non Tender, Soft, Other (Suprapubic drain in place) Extremity: Normal Inspection, Non Tender, No Pedal Edema Neurologic/Psychiatric: Alert, Oriented x3, No Motor/Sensory Deficits, Normal Mood/Affect Skin: Normal Color, Warm/Dry Results/Procedures Lab Laboratory Tests 12/26/20 05:15 Patient resulted labs reviewed. Imaging: Reviewed Imaging Report Assessment/Plan Assessment and Plan Assess & Plan/Chief Complaint BPH s/p prostatectomy Hematuria Post-operative anemia Hgb 10.1 this morning, stable s/p [address] Breaux primary Urine clearing Likely removing drain tomorrow Continue to monitor AFib Anticoagulation held Coreg Anxiety Agitation Dementia Delirium Ativan and Haldol as needed for anxiety and agitation HTN HLD Hypothyroidism CAD RLS Continue home meds Diagnosis/Problems Diagnosis/Problems (1) BPH (benign prostatic hyperplasia) Status: Acute (2) S/P prostatectomy Status: Acute (3) Hematuria Status: Acute (4) Postoperative anemia Status: Acute (5) Afib Status: Chronic (6) HTN (hypertension) Status: Chronic (7) HLD (hyperlipidemia) Status: Chronic (8) Hypothyroidism Status: Chronic (9) CAD (coronary artery disease) Status: Chronic (10) History of coronary artery bypass graft Status: Chronic (11) Anxiety Status: Acute (12) Agitation Status: Acute KYLER SIU MD Dec 26, 2020 11:27
--- NOTE | 2020-12-26 15:25 | Cardiology Progress Note ---
Cardiology SOAP Progress Note Subjective: No cardiac complaints. Objective: I&O/Vital Signs 12/26/20 12/26/20 12/26/20 12/26/20 04:12 07:00 07:40 08:00 Temp 36.3 36.2 Pulse 74 90 76 Resp 18 16 B/P (MAP) 100/55 (70) 111/56 (74) Pulse Ox 96 96 O2 Delivery Room Air Room Air Room Air 12/26/20 12/26/20 12/26/20 11:50 12:40 14:15 Temp 36.2 Pulse 70 88 Resp 20 B/P (MAP) 80/36 (51) 101/58 (72) Pulse Ox 98 O2 Delivery Room Air 12/26/20 00:00 Intake Total 1096 ml Output Total 2730 ml Balance -1634 ml Constitutional: AAO x 3 Respiratory: chest is bilaterally symmetric, lungs clear to auscultation Cardiovascular: irregularly irregular, S1 and S2 Gastrointestional: soft, audible bowel sounds Neurologic/Psychiatric: no motor/sensory deficits, alert, normal mood/affect, oriented x 3 Skin: normal color Results/Procedures: Labs Laboratory Tests 12/26/20 05:15: White Blood Count 8.9, Red Blood Count 3.17L, Hemoglobin 10.1L, Hematocrit 30L, Mean Corpuscular Volume 93, Mean Corpuscular Hemoglobin 32, Mean Corpuscular Hemoglobin Concent 34, Red Cell Distribution Width 12.9, Platelet Count 208, Mean Platelet Volume 10.3, Immature Granulocyte % (Auto) 0, Neutrophils (%) (Auto) 71, Lymphocytes (%) (Auto) 13, Monocytes (%) (Auto) 12, Eosinophils (%) (Auto) 4, Basophils (%) (Auto) 1, Neutrophils # (Auto) 6.3, Lymphocytes # (Auto) 1.1, Monocytes # (Auto) 1.0, Eosinophils # (Auto) 0.4H, Basophils # (Auto) 0.1, Immature Granulocyte # (Auto) 0.0, Sodium Level 137, Potassium Level 3.6, Chloride Level 106, Carbon Dioxide Level 22, Anion Gap 9, Blood Urea Nitrogen 14, Creatinine 0.77, Estimat Glomerular Filtration Rate > 60, BUN/Creatinine Ratio 18, Glucose Level 99, Calcium Level 8.8, Phosphorus Level 2.2L, Magnesium Level 2.0 Microbiology 12/23/20 MRSA Screen - Final, Complete MRSA not isolated A/P: Assessment/Dx: Coronary artery disease Chest pain Atrial fibrillation Hypertension Plan: Coronary artery disease, history of CABG in the remote past, reporting that he had a cardiac stress test done in [place] and he was told that it was normal. I do not have the report. Currently not having any active chest pain. Continue to monitor EKG Atrial fibrillation with rapid ventricular response, On beta-blockers. Frequent premature ventricular contractions, ventricular bigeminy, still having occasional premature ventricular contractions after initiating beta-blockers [id number] score of 4, yearly risk of stroke without oral anticoagulation is 4%, patient has been maintained on Xarelto as an outpatient, Need to be Restarted as soon as it is okay with Dr Breaux. Hypertension, restart home medication monitor blood pressure Hyperlipidemia, monitor lipids Dementia, patient has significant memory loss, unable to provide full history. Status post prostatectomy, still having hematuria, recommend restarting oral anticoagulation as soon as possible. Thank you for your consultation. Please call me if you have any questions. Geronimo Kirk MD, FACP, FACC, FSCAI, FHRS, CCDS Interventional Cardiology Cardiac Electrophysiology Vascular Medicine and Endovascular Interventions Zuleika KIRK MD Dec 26, 2020 15:25
[2020-12-26] MEDS: D5 LR IV SOLUTION 1,000 ML IV SCH (17:22)
[2020-12-26] MEDS: lisINopril 5 MG (PRINIVIL) TABLET PO SCH (20:55)
[2020-12-27 04:00] VITALS: BP 127/81
[2020-12-27 04:06] LABS: BASOPHILS % (AUTO) 1 % (0-10); EOSINOPHILS # (AUTO) 0.5 10^3/uL (0.0-0.3); EOSINOPHILS % (AUTO) 7 % (0-10); HEMATOCRIT 30 % (40-54); HEMOGLOBIN 10.1 g/dL (13.3-17.7); LYMPHOCYTES # (AUTO) 1.2 10^3/uL (1.0-4.0); LYMPHOCYTES % (AUTO) 17 % (12-44); MEAN CORPUSCULAR HEMOGLOBIN 32 pg (25-34); MEAN CORPUSCULAR HGB CONC 34 g/dL (32-36); MEAN CORPUSCULAR VOLUME 94 fL (80-99); MEAN PLATELET VOLUME 10.1 fL (9.0-12.2); MONOCYTES # (AUTO) 0.8 10^3/uL (0.0-1.0); MONOCYTES % (AUTO) 11 % (0-12); NEUTROPHILS # (AUTO) 4.7 10^3/uL (1.8-7.8); NEUTROPHILS % (AUTO) 65 % (42-75); PLATELET COUNT 218 10^3/uL (130-400); WHITE BLOOD COUNT 7.4 10^3/uL (4.3-11.0)
[2020-12-27] MEDS: D5 LR IV SOLUTION 1,000 ML IV SCH (06:29)
[2020-12-27 07:25] VITALS: BP 138/74
[2020-12-27 07:54] LABS: BUN/CREATININE RATIO 24; CALCIUM 8.7 MG/DL (8.5-10.1); CARBON DIOXIDE 23 MMOL/L (21-32); CHLORIDE 107 MMOL/L (98-107); CREATININE SERUM 0.75 MG/DL (0.60-1.30); GFR ESTIMATED > 60; GLUCOSE 100 MG/DL (70-105); POTASSIUM 3.9 MMOL/L (3.6-5.0); SODIUM 138 MMOL/L (135-145)
[2020-12-27] MEDS: rOPINIRole 1 MG (REQUIP) TABLET PO SCH ×2 (08:16→20:33)
[2020-12-27] MEDS: CARVEDILOL 12.5 MG (COREG) TABLET PO SCH ×2 (08:16→18:53)
--- NOTE | 2020-12-27 10:25 | Progress Note - Urology ---
Progress Note-Urology Progress Notes/Assess & Plan Progress/Assessment & Plan CONTINUES WELL. NO COMPLAINTS. HAD BM. URINE CLEAR OFF CBI. PLAN PER ORDERS Final Diagnosis BPH WITH RETENTION SERGIO CHRISTINA MD Dec 27, 2020 10:25
[2020-12-27 11:20] VITALS: BP 122/59
--- NOTE | 2020-12-27 11:25 | Physical Therapy Daily Note ---
PT Daily Note-Current Subjective Pt standing in BR fixing hair and brushing teeth upon arrival. Pt agreeable to therapy. Pt denied pain. Mental Status Patient Orientation: Person, Place, Situation Transfers SCALE: Activities may be completed with or without assistive devices. 3-Ozvygndfau-rzbfmku completes the activity by him/herself with no assistance from a helper. 5-Set-up or Clean-up Assistance-helper sets up or cleans up; patient completes activity. [place] assists only prior to or following the activity. 4-Supervision or Touching Assistance-helper provides verbal cues and/or touching/steadying and/or contact guard assistance as patient completes a ctivity. Assistance may be provided throughout the activity or intermittently. 3-Partial/Moderate Assistance-helper does LESS THAN HALF the effort. [place] lifts, holds or supports trunk or limbs, but provides less than half the effort. 2-Substantial/Maximal Assistance-helper does MORE THAN HALF the effort. [place] lifts or holds trunk or limbs and provides more than half the effort. 8-Ehyirahtr-hmxrmu does ALL the effort. Patient does none of the effort to complete the activity. Or, the assistance of 2 or more helpers is required for the patient to complete the activity. If activity was not attempted, code reason: 7-Patient Refused. 9-Not Applicable-not attempted and the patient did not perform the activity before the current illness, exacerbation or injury. 10-Not Attempted due to Environmental Limitations-(lack of equipment, weather restraints, etc.). 88-Not Attempted due to Medical Conditions or Safety Concerns. Weight Bearing Right Lower Extremity: Right Weight Bearing/Tolerated Left Lower Extremity: Left Weight Bearing/Tolerated Treatments Pt amb with FWW and CGA-SBA x 250ft at steady speed. Pt stood about 5 min visiting looking out window. Pt sitting in recliner post therapy session with call light and all needs met. Assessment Current Status: Good Progress Pt showing good endurance, good balance and good functional mobility with use of FWW for support. Pt resting with all needs met post treatment. PT Alf Goals Alf Goals PT Alf Goals Time Frame: Jan 03, 2021 Roll Left & Right (QC): 6 Sit to Lying (QC): 6 Lying-Sitting on Side/Bed(QC): 6 Sit to Stand (QC): 6 Chair/Wst-ca-Rtsad Xfer(QC): 6 Toilet Transfer (QC): 6 Does the Patient Walk: Yes Walk 10 feet (QC): 6 Walk 50ft with 2 Turns (QC): 6 Walk 150 ft (QC): 6 PT Plan Treatment/Plan Treatment Plan: Continue Plan of Care Treatment Plan: Bed Mobility, Education, Functional Activity Skip, Functional Strength, Gait, Safety, Therapeutic Exercise, Transfers Treatment Duration: Jan 03, 2021 Frequency: 6 times per week Estimated Hrs Per Day: .5 hour per day Patient and/or Family Agrees t: Yes Time/GCodes Time In: 1000 Time Out: 1030 Total Billed Treatment Time: 30 Total Billed Treatment 1, gait 25', FA 5' SAMM HYMAN CPTA Dec 27, 2020 11:25
[2020-12-27] MEDS ORDERED: ONDANSETRON 4 MG (ZOFRAN) ORAL DISSOLVE TAB PO PRN (11:30)
--- NOTE | 2020-12-27 14:14 | Cardiology Progress Note ---
Cardiology SOAP Progress Note Subjective: No cardiac complaints. Objective: I&O/Vital Signs 12/27/20 12/27/20 12/27/20 12/27/20 04:00 07:00 07:25 08:38 Temp 36.5 36.4 Pulse 76 77 82 Resp 18 20 B/P (MAP) 127/81 (96) 138/74 (95) Pulse Ox 98 96 O2 Delivery Room Air Room Air Room Air 12/27/20 12/27/20 11:20 12:35 Temp 36.7 Pulse 78 78 Resp 22 B/P (MAP) 122/59 (80) Pulse Ox 98 O2 Delivery Room Air 12/27/20 00:00 Intake Total 910 ml Output Total 2200 ml Balance -1290 ml Constitutional: AAO x 3 Respiratory: chest is bilaterally symmetric, lungs clear to auscultation Cardiovascular: irregularly irregular, S1 and S2 Gastrointestional: soft, audible bowel sounds Genital/Rectal: other (No hollie blood in the urine.) Neurologic/Psychiatric: no motor/sensory deficits, alert, normal mood/affect, oriented x 3 Skin: normal color Results/Procedures: Labs Laboratory Tests 12/27/20 03:44: White Blood Count 7.4, Red Blood Count 3.15L, Hemoglobin 10.1L, Hematocrit 30L, Mean Corpuscular Volume 94, Mean Corpuscular Hemoglobin 32, Mean Corpuscular Hemoglobin Concent 34, Red Cell Distribution Width 13.1, Platelet Count 218, Mean Platelet Volume 10.1, Immature Granulocyte % (Auto) 0, Neutrophils (%) (Auto) 65, Lymphocytes (%) (Auto) 17, Monocytes (%) (Auto) 11, Eosinophils (%) (Auto) 7, Basophils (%) (Auto) 1, Neutrophils # (Auto) 4.7, Lymphocytes # (Auto) 1.2, Monocytes # (Auto) 0.8, Eosinophils # (Auto) 0.5H, Basophils # (Auto) 0.0, Immature Granulocyte # (Auto) 0.0, Sodium Level 138, Potassium Level 3.9, Chlor [place] Level 107, Carbon Dioxide Level 23, Anion Gap 8, Blood Urea Nitrogen 18, Creatinine 0.75, Estimat Glomerular Filtration Rate > 60, BUN/Creatinine Ratio 24, Glucose Level 100, Calcium Level 8.7 Microbiology 12/23/20 MRSA Screen - Final, Complete MRSA not isolated A/P: Assessment/Dx: Coronary artery disease Chest pain Paroxysmal atrial fibrillation Hypertension S/p prostate surgery. Plan: Coronary artery disease, history of CABG in the remote past, reporting that he had a cardiac stress test done in [place] and he was told that it was normal. I do not have the report. Currently not having any active chest pain. Continue to monitor EKG Atrial fibrillation with rapid ventricular response, On beta-blockers. Frequent premature ventricular contractions, ventricular bigeminy, still having occasional premature ventricular contractions after initiating beta-blockers [id number] score of 4, yearly risk of stroke without oral anticoagulation is 4%, patient has been maintained on Xarelto as an outpatient, Need to be Restarted as soon as it is okay with Dr Breaux. Patient is aware that we are holding Xarelto due to the risk of bleeding post prostate surgery. Hypertension, restart home medication monitor blood pressure Hyperlipidemia, monitor lipids Dementia, patient has significant memory loss, unable to provide full history. Status post prostatectomy, still having hematuria, recommend restarting oral ant icoagulation as soon as possible. Thank you for your consultation. Please call me if you have any questions. Geronimo Kirk MD, FACP, FACC, FSCAI, FHRS, CCDS Interventional Cardiology Cardiac Electrophysiology Vascular Medicine and Endovascular Interventions Zuleika KIRK MD Dec 27, 2020 14:14
[2020-12-27 15:52] VITALS: BP 121/73
[2020-12-27 20:34] VITALS: BP 148/81
[2020-12-27] MEDS: lisINopril 5 MG (PRINIVIL) TABLET PO SCH (20:34)
[2020-12-28 00:34] VITALS: BP 121/71
[2020-12-28 04:39] VITALS: BP 133/70
[2020-12-28 04:49] LABS: BASOPHILS % (AUTO) 1 % (0-10); EOSINOPHILS # (AUTO) 0.7 10^3/uL (0.0-0.3); EOSINOPHILS % (AUTO) 10 % (0-10); HEMATOCRIT 31 % (40-54); HEMOGLOBIN 10.6 g/dL (13.3-17.7); LYMPHOCYTES # (AUTO) 1.1 10^3/uL (1.0-4.0); LYMPHOCYTES % (AUTO) 16 % (12-44); MEAN CORPUSCULAR HEMOGLOBIN 33 pg (25-34); MEAN CORPUSCULAR HGB CONC 35 g/dL (32-36); MEAN CORPUSCULAR VOLUME 94 fL (80-99); MEAN PLATELET VOLUME 10.2 fL (9.0-12.2); MONOCYTES # (AUTO) 0.8 10^3/uL (0.0-1.0); MONOCYTES % (AUTO) 11 % (0-12); NEUTROPHILS # (AUTO) 4.3 10^3/uL (1.8-7.8); NEUTROPHILS % (AUTO) 63 % (42-75); PLATELET COUNT 295 10^3/uL (130-400); WHITE BLOOD COUNT 6.8 10^3/uL (4.3-11.0)
[2020-12-28 05:02] LABS: BUN/CREATININE RATIO 24; CALCIUM 9.2 MG/DL (8.5-10.1); CARBON DIOXIDE 23 MMOL/L (21-32); CHLORIDE 105 MMOL/L (98-107); CREATININE SERUM 0.75 MG/DL (0.60-1.30); GFR ESTIMATED > 60; GLUCOSE 91 MG/DL (70-105); POTASSIUM 3.6 MMOL/L (3.6-5.0); SODIUM 138 MMOL/L (135-145)
[2020-12-28 07:15] VITALS: BP 115/74
[2020-12-28] MEDS: CARVEDILOL 12.5 MG (COREG) TABLET PO SCH ×2 (07:59→17:09)
[2020-12-28] MEDS: rOPINIRole 1 MG (REQUIP) TABLET PO SCH ×2 (08:00→20:14)
[2020-12-28] MEDS: polyethylene glycoL POWDER 17 GM (MIRALAX) PACK PO SCH (08:00)
[2020-12-28 12:05] VITALS: BP 109/70
--- NOTE | 2020-12-28 12:42 | Cardiology Progress Note ---
Cardiology SOAP Progress Note Objective: I&O/Vital Signs 12/28/20 12/28/20 12/28/20 12/28/20 01:00 04:39 07:00 07:15 Temp 36.2 36.2 Pulse 89 89 94 89 Resp 20 18 B/P (MAP) 133/70 (91) 115/74 (88) Pulse Ox 97 96 O2 Delivery Room Air Room Air 12/28/20 12/28/20 08:00 12:05 Temp 36.3 Pulse 70 Resp 20 B/P (MAP) 109/70 (83) Pulse Ox 97 O2 Delivery Room Air Room Air 12/28/20 00:00 Intake Total 1760 ml Output Total 3600 ml Balance -1840 ml Constitutional: AAO x 3 Respiratory: chest is bilaterally symmetric, lungs clear to auscultation Cardiovascular: irregularly irregular, S1 and S2 Gastrointestional: soft, audible bowel sounds Genital/Rectal: other (No hlolie blood in the urine.) Neurologic/Psychiatric: no motor/sensory deficits, alert, normal mood/affect, oriented x 3 Skin: normal color Results/Procedures: Labs Laboratory Tests 12/28/20 04:08: White Blood Count 6.8, Red Blood Count 3.26L, Hemoglobin 10.6L, Hematocrit 31L, Mean Corpuscular Volume 94, Mean Corpuscular Hemoglobin 33, Mean Corpuscular Hemoglobin Concent 35, Red Cell Distribution Width 13.2, Platelet Count 295, Mean Platelet Volume 10.2, Immature Granulocyte % (Auto) 0, Neutrophils (%) (Auto) 63, Lymphocytes (%) (Auto) 16, Monocytes (%) (Auto) 11, Eosinophils (%) (Auto) 10, Basophils (%) (Auto) 1, Neutrophils # (Auto) 4.3, Lymphocytes # (Auto) 1.1, Monocytes # (Auto) 0.8, Eosinophils # (Auto) 0.7H, Basophils # (Auto) 0.0, Immature Granulocyte # (Auto) 0.0, Sodium Level 138, Potassium Level 3.6, Chloride Level 105, Carbon Dioxide Level 23, Anion Gap 10, Blood Urea Nitrogen 18, Creatinine 0.75, Estimat Glomerular Filtration Rate > 60, BUN/Creatinine Ratio 24, Glucose Level 91, Calcium Level 9.2 Microbiology 12/23/20 MRSA Screen - Final, Complete MRSA not isolated A/P: Assessment/Dx: Coronary artery disease Chest pain Paroxysmal atrial fibrillation Hypertension S/p prostate surgery. Persistent hematuria Plan: Coronary artery disease, history of CABG in the remote past, reporting that he had a cardiac stress test done in [place] and he was told that it was normal. I do not have the report. Currently not having any active chest pain. Continue to monitor EKG Atrial fibrillation with rapid ventricular response, On beta-blockers. Frequent premature ventricular contractions, ventricular bigeminy, still having occasional premature ventricular contractions after initiating beta-blockers [id number] score of 4, yearly risk of stroke without oral anticoagulation is 4%, patient has been maintained on Xarelto as an outpatient, Need to be Restarted as soon as it is okay with Dr Breaux. Patient is aware that we are holding Xarelto due to the risk of bleeding post prostate surgery. Persistent hematuria therefore Xarelto is on hold. Hypertension, restart home medication monitor blood pressure Hyperlipidemia, monitor lipids Dementia, patient has significant memory loss, unable to provide full history. Status post prostatectomy, still having hematuria, recommend restarting oral anticoagulation as soon as possible. Thank you for your consultation. Please call me if you have any questions. Geronimo Kirk MD, FACP, FACC, FSCAI, FHRS, CCDS Interventional Cardiology Cardiac Electrophysiology Vascular Medicine and Endovascular Interventions Zuleika KIRK MD Dec 28, 2020 12:42
[2020-12-28 16:09] VITALS: BP 105/65
[2020-12-28 19:39] VITALS: BP 112/68
[2020-12-28] MEDS: lisINopril 5 MG (PRINIVIL) TABLET PO SCH (20:14)
[2020-12-29 00:14] VITALS: BP 120/78
[2020-12-29 04:25] VITALS: BP 102/64
[2020-12-29 05:36] LABS: BASOPHILS % (AUTO) 1 % (0-10); EOSINOPHILS # (AUTO) 0.6 10^3/uL (0.0-0.3); EOSINOPHILS % (AUTO) 7 % (0-10); HEMATOCRIT 33 % (40-54); LYMPHOCYTES # (AUTO) 1.2 10^3/uL (1.0-4.0); LYMPHOCYTES % (AUTO) 15 % (12-44); MEAN CORPUSCULAR HEMOGLOBIN 32 pg (25-34); MEAN CORPUSCULAR HGB CONC 34 g/dL (32-36); MEAN CORPUSCULAR VOLUME 95 fL (80-99); MEAN PLATELET VOLUME 10.1 fL (9.0-12.2); MONOCYTES # (AUTO) 0.9 10^3/uL (0.0-1.0); MONOCYTES % (AUTO) 11 % (0-12); NEUTROPHILS # (AUTO) 5.3 10^3/uL (1.8-7.8); NEUTROPHILS % (AUTO) 66 % (42-75); PLATELET COUNT 280 10^3/uL (130-400); WHITE BLOOD COUNT 8.1 10^3/uL (4.3-11.0)
[2020-12-29 05:57] LABS: BUN/CREATININE RATIO 24; CALCIUM 9.8 MG/DL (8.5-10.1); CARBON DIOXIDE 23 MMOL/L (21-32); CHLORIDE 104 MMOL/L (98-107); CREATININE SERUM 0.85 MG/DL (0.60-1.30); GFR ESTIMATED > 60; GLUCOSE 91 MG/DL (70-105); POTASSIUM 3.9 MMOL/L (3.6-5.0); SODIUM 136 MMOL/L (135-145)
[2020-12-29 08:00] VITALS: BP 108/71
[2020-12-29] MEDS: rOPINIRole 1 MG (REQUIP) TABLET PO SCH ×2 (08:07→20:29)
[2020-12-29] MEDS: CARVEDILOL 12.5 MG (COREG) TABLET PO SCH ×2 (08:07→17:44)
[2020-12-29] MEDS: polyethylene glycoL POWDER 17 GM (MIRALAX) PACK PO SCH ×2 (08:08→08:10)
--- NOTE | 2020-12-29 08:50 | Progress Note - Urology ---
Progress Note-Urology Progress Notes/Assess & Plan Progress/Assessment & Plan DOING VERY WELL. URINE CLEAR. DC BHARDWAJ Final Diagnosis BPH WITH RETENTION SERGIO CHRISTINA MD Dec 29, 2020 08:50
--- NOTE | 2020-12-29 10:02 | Physical Therapy Daily Note ---
PT Daily Note-Current Subjective Patient is in bed and agrees to PT. No c/o. Mental Status Patient Orientation: Normal For Age Attachments: Shafer Catheter Transfers SCALE: Activities may be completed with or without assistive devices. 8-Dydjqbocej-fhcehqv completes the activity by him/herself with no assistance from a helper. 5-Set-up or Clean-up Assistance-helper sets up or cleans up; patient completes activity. [place] assists only prior to or following the activity. 4-Supervision or Touching Assistance-helper provides verbal cues and/or touching/steadying and/or contact guard assistance as patient completes activity. Assistance may be provided throughout the activity or intermittently. 3-Partial/Moderate Assistance-helper does LESS THAN HALF the effort. [place] lifts, holds or supports trunk or limbs, but provides less than half the effort. 2-Substantial/Maximal Assistance-helper does MORE THAN HALF the effort. [place] lifts or holds trunk or limbs and provides more than half the effort. 5-Dvdoxxhzk-utdeqs does ALL the effort. Patient does none of the effort to complete the activity. Or, the assistance of 2 or more helpers is required for the patient to complete the activity. If activity was not attempted, code reason: 7-Patient Refused. 9-Not Applicable-not attempted and the patient did not perform the activity before the current illness, exacerbation or injury. 10-Not Attempted due to Environmental Limitations-(lack of equipment, weather restraints, etc.). 88-Not Attempted due to Medical Conditions or Safety Concerns. Lying to Sitting/Side of Bed(Q: 6 Sit to Stand (QC): 6 Chair/Kvp-rd-Cxhpr Xfer(QC): 6 Weight Bearing Right Lower Extremity: Right Weight Bearing/Tolerated Left Lower Extremity: Left Weight Bearing/Tolerated Gait Training Does the Patient Walk?: Yes Distance: 300' Walk 10 feet (QC): 6 Walk 50 ft with 2 Turns(QC): 6 Walk 150 ft (QC): 6 Gait Assistive Device: FWW slow, steady gait Assessment Patient is up in recliner with needs met. Patient reports fatigue but improving. PT Snf Goals Casino Runner Goals PT Snf Goals Time Frame: Jan 03, 2021 Roll Left & Right (QC): 6 Sit to Lying (QC): 6 Lying-Sitting on Side/Bed(QC): 6 Sit to Stand (QC): 6 Chair/Lyh-dy-Fkbpz Xfer(QC): 6 Toilet Transfer (QC): 6 Does the Patient Walk: Yes Walk 10 feet (QC): 6 Walk 50ft with 2 Turns (QC): 6 Walk 150 ft (QC): 6 PT Plan Treatment/Plan Treatment Plan: Continue Plan of Care Treatment Plan: Bed Mobility, Education, Functional Activity Skip, Functional Strength, Gait, Safety, Therapeutic Exercise, Transfers Treatment Duration: Jan 03, 2021 Frequency: 6 times per week Estimated Hrs Per Day: .5 hour per day Patient and/or Family Agrees t: Yes Time/GCodes Time In: 931 Time Out: 941 Total Billed Treatment Time: 10 Total Billed Treatment 1 visit FA 10 min CARMELO FERREIRA PT Dec 29, 2020 10:02
[2020-12-29 12:00] VITALS: BP 90/57
--- NOTE | 2020-12-29 12:13 | Cardiology Progress Note ---
Cardiology Progess Note Progress Date Seen by Provider: Dec 29, 2020 Time Seen by Provider: 08:25 Mr. Rinaldi was seen and examined today. He was up walking around with his walker. No chest pain, shortness of breath, nausea or vomiting. States he will have another procedure tomorrow Physical Exam Vital Signs/I&O 12/29/20 12/29/20 12/29/20 12/29/20 08:00 08:00 12:00 12:14 Temp 36.2 35.8 Pulse 70 76 65 Resp 18 20 B/P (MAP) 108/71 (83) 90/57 (68) Pulse Ox 99 96 O2 Delivery Room Air Room Air Room Air 12/29/20 16:00 Temp 35.9 Pulse 73 Resp 20 B/P (MAP) 136/70 (92) Pulse Ox 98 O2 Delivery Room Air 12/28/20 23:59 Intake Total 1380 ml Output Total 2265 ml Balance -885 ml Capillary Refill : Constitutional: appears stated age, AAO x 3 Respiratory: chest is bilaterally symmetric, lungs clear to auscultation Cardiovascular: irregularly irregular, S1 and S2 Gastrointestinal: soft, audible bowel sounds Extremities: no lower extremity edema bilateral Neurologic/Psychiatric: no motor/sensory deficits, alert, normal mood/affect, oriented x 3 Skin: normal color A/P-Cardiology Assessment/Plan Plan Coronary artery disease, history of CABG in the remote past, reporting that he had a cardiac stress test done in [place] and he was told that it was normal. Currently not having any active chest pain. Continue to monitor EKG Atrial fibrillation with rapid ventricular response, started on IV Lopressor, restart Coreg and monitor tolerance and response. [id number] score of 4, yearly risk of stroke without oral anticoagulation is 4%, patient has been maintained on Xarelto as an outpatient, need to be restarted as soon as possible Frequent premature ventricular contractions, ventricular bigeminy, still having occasional premature ventricular contractions after initiating beta-blockers Hypertension, restart home medication monitor blood pressure Hyperlipidemia, monitor lipids Dementia, patient has significant memory loss, unable to provide full history. Status post prostatectomy, still having hematuria, recommend restarting oral anticoagulation as soon as possible. Patient was seen at bedside, laying down comfortably Still having active bleeding Scheduled for procedure tomorrow Still having frequent premature ventricular contractions, had paroxysmal atrial fibrillation Need to restart on oral anticoagulation as soon as possible to limit the possibility of stroke Monitor blood pressure TUAN ALVAREZ, Dec 29, 2020 12:13 HEATHER ALMAZAN MD Dec 29, 2020 19:12
[2020-12-29 16:00] VITALS: BP 136/70
[2020-12-29 20:00] VITALS: BP 125/76
[2020-12-29] MEDS: lisINopril 5 MG (PRINIVIL) TABLET PO SCH (20:29)
[2020-12-30 00:20] VITALS: BP 108/69
[2020-12-30 04:44] VITALS: BP 117/70
--- NOTE | 2020-12-30 07:39 | Cardiology Progress Note ---
Subjective Date Seen by Provider: Dec 30, 2020 Time Seen by Provider: 07:20 Subjective/Events-last exam Mr. Rinaldi was seen and examined this am. States he is feeling well today, no concerns. Denies chest pain or shortness of breath. Ready to go home. Review of Systems General: No Chills, No Night Sweats, No Fatigue, No Malaise, No Appetite, No Other HEENT: No Head Aches, No Visual Changes, No Eye Pain, No Ear Pain, No Dysphasia, No Sinus Congestion, No Post Nasal Drip, No Sore Throat, No Other Pulmonary: No Dyspnea, No Cough, No Pleuritic Chest Pain, No Other Cardiovascular: No: Chest Pain, Palpitations, Orthopnea, Paroxysmal Noc. Dyspnea, Edema, Lt Headedness, Other Objective-Cardiology Exam Last Set of Vital Signs Vital Signs 12/25/20 12/30/20 12/30/20 10:45 07:46 08:00 Temp 36.3 Pulse 87 Resp 18 B/P (MAP) 92/56 (68) Pulse Ox 98 O2 Delivery Room Air O2 Flow Rate 1.00 Capillary Refill : I&O Intake and Output 12/30/20 00:00 Intake Total 2570 ml Output Total 1085 ml Balance 1485 ml Intake Oral 2570 ml Output Urine Total 1050 ml Drainage Total 35 ml # Voids 4 # Bowel Movements 2 General: Alert, No Acute Distress HEENT: Atraumatic Neck: Supple Lungs: Clear to Auscultation, Normal Air Movement Heart: Normal S1, Normal S2, Other (irregularly irregular) Abdomen: Normal Bowel Sounds, Soft Extremities: No Clubbing, No Cyanosis Skin: No Rashes A/P-Cardiology Admission Diagnosis Coronary artery disease Chest pain Atrial fibrillation Hypertension Assessment/Plan Coronary artery disease, history of CABG in the remote past, reporting that he had a cardiac stress test done in [place] and he was told that it was normal. Currently not having any active chest pain. Continue to monitor EKG. Atrial fibrillation with rapid ventricular response, Heart rate is better controlled, back to his home medication dose. Continue to monitor [id number] score of 4, yearly risk of stroke without oral anticoagulation is 4%, patient has been maintained on Xarelto as an outpatient, need to be restarted as soon as possible. Frequent premature ventricular contractions, ventricular bigeminy, Follow-up with his primary hood fitter after discharge Hypertension, restart home medication monitor blood pressure Hyperlipidemia, monitor lipids Dementia, patient has significant memory loss, unable to provide full history. Status post prostatectomy, Shafer removed yesterday and tolerating well. Likely to d/c today, recommend restarting oral anticoagulation as soon as possible. Supervisory-Addendum Brief Verification & Attestation Participated in pt care: history, MDM, physical Personally performed: exam, history, MDM, supervision of care Care discussed with: Medical Student Procedures: n/a Results interpretation: Verified all documentation Verification and Attestation of Medical Student E/M Service A medical student performed and documented this service in my presence. I reviewed and verified all information documented by the medical student and made modifications to such information, when appropriate. I personally performed the physical exam and medical decision making. Heather Hansen, Dec 30, 2020,10:33 TUAN ALVAREZ, Dec 30, 2020 07:39 HEATHER HANSEN MD Dec 30, 2020 10:33
[2020-12-30 07:46] VITALS: BP 92/56
[2020-12-30] MEDS: rOPINIRole 1 MG (REQUIP) TABLET PO SCH (08:19)
[2020-12-30] MEDS: CARVEDILOL 12.5 MG (COREG) TABLET PO SCH (08:19)
[2020-12-30] MEDS: polyethylene glycoL POWDER 17 GM (MIRALAX) PACK PO SCH (08:22)
--- NOTE | 2020-12-30 09:20 | Progress Note - Urology ---
Progress Note-Urology Progress Notes/Assess & Plan Progress/Assessment & Plan VOIDING VERY WELL. EMPTIES. NO LEAKAGE. CLEAR URINE. HAPPY. DISCHARGE WITH INSTRUCTIONS AND PLAN FULLY EXPLAINED.. Final Diagnosis BPH WITH URINE RETENTION SERGIO CHRISTINA MD Dec 30, 2020 09:20
--- NOTE | 2020-12-30 09:25 | Discharge Inst-Urology ---
Discharge Inst-Urology Reconcile Patient Problems Problems Reviewed?: Yes Final Diagnosis BPH WITH URINE RETENTION Patient Instructions/Follow Up Plan/Assessment/Instructions DC hemovac and discharge patient Please make appointment to been seen in office next Tuesday, REST till then. Stay off Xarelto and Proscar Keep bowels soft and moving Rx for tramadol 50mg every 6 hours prn pain Showers, no bath Increase oral fluids for 48 hours and then as needed. Diet as tolerated. If questions or concerns contact your physician Or seek help at emergency department. SERGIO CHRISTINA MD Dec 30, 2020 09:25
[2020-12-30 11:23] VITALS: BP 92/56
== END 2020-12-30 11:25 | disposition home health service (06) | DRG 707 ==
LOC: EDSTATUS 09:00 → 4TH 12-23 05:57 → SURG 12-23 05:58 → ICU 12-23 12:25 → 4TH 12-25 12:34
PROVIDERS: ADMIT Urology; ATTEND Urology
PROC: 0VT00ZZ Resection of Prostate, Open Approach (ICD-10-PCS; principal; 2020-12-23 07:36)
DX: N40.1 Benign prostatic hyperplasia with lower urinary tract symptoms (principal); F05 Delirium due to known physiological condition; R33.9 Retention of urine, unspecified; N21.0 Calculus in bladder; I25.10 Atherosclerotic heart disease of native coronary artery without angina pectoris; M19.91 Primary osteoarthritis, unspecified site; I48.0 Paroxysmal atrial fibrillation; I49.3 Ventricular premature depolarization; I10 Essential (primary) hypertension; E78.5 Hyperlipidemia, unspecified; F03.90 Unspecified dementia, unspecified severity, without behavioral disturbance, psychotic disturbance, mood disturbance, and anxiety; E03.9 Hypothyroidism, unspecified; R31.9 Hematuria, unspecified; D64.9 Anemia, unspecified; F41.9 Anxiety disorder, unspecified; G25.81 Restless legs syndrome; Z95.1 Presence of aortocoronary bypass graft
CPT/HCPCS: 36415; 80048; 83735; 84100; 85007; 85025; 85027; 86850; 86900; 86901; 86920; 87081; 88307

== ENCOUNTER 2020-12-17 10:43 | Outpatient (CLI) | payer MEDICARE ==
[~2020-12-17] VITALS: Ht 177 cm; Wt 90.0 kg
== END 2020-12-17 13:25 | disposition home or self-care (01) ==
LOC: PREOP 10:43
PROVIDERS: ATTEND Urology
DX: Z01.818 Encounter for other preprocedural examination (principal)